=== PATIENT | male | born 1985 | race Caucasian/White ===

== ENCOUNTER 2016-12-17 12:52 | Emergency (ER) | payer OTHER ==
[2016-12-17] MEDS ORDERED: SODIUM CHLORIDE 0.9% 1,000 ML IV STA (13:26)
[2016-12-17] MEDS ORDERED: MORPHINE SULFATE 4 MG/ML SYRINGE IV STA (13:26)
--- NOTE | 2016-12-17 13:28 | XR ---
EXAMINATION TYPE: XR chest 2V DATE OF EXAM: 12/17/2016 COMPARISON: Prior chest x-ray 07/23/2014 HISTORY: Chest pain TECHNIQUE: Frontal and lateral views of the chest are obtained. FINDINGS: There is no focal air space opacity, pleural effusion, or pneumothorax seen. The cardiac silhouette size is within normal limits. The osseous structures are intact. IMPRESSION: No acute cardiopulmonary process.
--- NOTE | 2016-12-17 13:33 | ED ---
Chest Pain HPI - General Chief Complaint: Chest Pain Stated Complaint: [place] in shoulder and neck Time Seen by Provider: 12/17/16 13:15 Source: patient, RN notes reviewed, old records reviewed Mode of arrival: wheelchair Limitations: no limitations - History of Present Illness Initial Comments: 31-year-old male presents emergency Department chief complaint of pain in the right shoulder and chest area for the past week and half. Patient reports that the pain feels similar to previous pneumothorax. Patient ports that it is worse with taking a deep breath. He states that the pain occasionally radiate down the right arm. Patient denies any recent fever, chills, shortness of breath , chest pain, back pain, abdominal pain, nausea vomiting, numbness or tingling, dysuria or hematuria, constipation or diarrhea, headaches or visual changes, or any other current symptoms - Related Data Previous Rx's Medication Instructions Recorded Cyclobenzaprine [Flexeril] 10 mg PO TID #15 tab 12/17/16 HYDROcodone/APAP 10-325MG [[place] 1 tab PO Q6H PRN #12 tab 12/17/16 10-325] Allergies Allergy/AdvReac Type Severity Reaction Status Date / Time honey dew melon Allergy Unknown Uncoded 12/17/16 12:53 Review of Systems ROS Statement: Those systems with pertinent positive or pertinent negative responses have been documented in the HPI. ROS Other: All systems not noted in ROS Statement are negative. EKG Findings - EKG Comments: EKG Findings:: EKG shows normal sinus rhythm. Ventricular rate 60 bpm. GA interval 160 ms. QRS duration 94 ms. QT QTc is 388 ms. No evidence of ST elevation or T-wave inversion. No evidence of atrial or ventricular arrhythmias. Past Medical History Additional Past Medical History / Comment(s): Pneumothorax History of Any Multi-Drug Resistant Organisms: None Reported Past Surgical History: Adenoidectomy, Tonsillectomy Additional Past Surgical History / Comment(s): chest tube, PCL repair Past Psychological History: No Psychological Hx Reported Smoking Status: Never smoker Past Alcohol Use History: None Reported Past Drug Use History: None Reported General Exam - General Exam Comments Initial Comments: 31-year-old male. Patient is on appear to be in any acute distress. Limitations: no limitations General appearance: alert, in no apparent distress Head exam: Present: atraumatic, normocephalic, normal inspection Eye exam: Present: normal appearance, PERRL, EOMI. Absent: scleral icterus, conjunctival injection, periorbital swelling ENT exam: Present: normal exam, mucous membranes moist Neck exam: Present: normal inspection, tenderness (over right paraspinal cervical muscles. ). Absent: meningismus, lymphadenopathy Respiratory exam: Present: normal lung sounds bilaterally. Absent: respiratory distress, wheezes, rales, rhonchi, stridor Cardiovascular Exam: Present: regular rate, normal rhythm, normal heart sounds. Absent: systolic murmur, diastolic murmur, rubs, gallop, clicks GI/Abdominal exam: Present: soft, normal bowel sounds. Absent: distended, tenderness, guarding, rebound, rigid Extremities exam: Present: normal inspection, full ROM, normal capillary refill , other (right shoulder pain with abduction. Patient has full range of motion. ) . Absent: tenderness, pedal edema, joint swelling, calf tenderness Back exam: Present: normal inspection Neurological exam: Present: alert, oriented X3, CN II-XII intact Psychiatric exam: Present: normal affect, normal mood Skin exam: Present: warm, dry, intact, normal color. Absent: rash Course Vital Signs 12/17/16 12/17/16 12/17/16 12:53 13:58 15:03 Temperature 98.8 F 97.3 F L 97.1 F L Pulse Rate 84 61 61 Pulse Rate [ 62 W[employer] Room Supervisor ] Respiratory 17 18 18 Rate Blood Pressure 133/75 124/67 129/53 O2 Sat by Pulse 97 99 100 Oximetry 12/17/16 16:08 Temperature 98.7 F Pulse Rate 70 Pulse Rate [ W[employer] Room Supervisor ] Respiratory 18 Rate Blood Pressure 114/75 O2 Sat by Pulse 99 Oximetry Chest Pain MDM - MDM 31-year-old male presents emergency Department chief complaint of pain in the right shoulder and chest area for the past week and half. Patient reports that the pain feels similar to previous pneumothorax. Patient ports that it is worse with taking a deep breath. He states that the pain occasionally radiate down the right arm. Patient's lab work was reviewed and negative for any acute process. The right shoulder x-ray shows to correlate for shoulder impingement syndrome. Patient chest x-ray shows no evidence of pneumothorax. At this time appears to be more muscle skeletal issue. Patient will be discharged at this time with pain medication and muscle relaxers. Discussed following up with orthopedic. Also discussed returning for any worsening signs or symptoms that can occur. Disposition Clinical Impression: Impingement syndrome of right shoulder, Neck muscle spasm, Back pain Disposition: HOME SELF-CARE Condition: Good Instructions: Rotator Cuff Injury (ED), Costochondritis (ED) Additional Instructions: Patient advised to follow-up with primary care provider. With orthopedic and senior analysis specialist. Patient should not be purchased pain any physical activity until feeling better. Thickening applying heat and ice over the shoulder and neck. Return if there is any worsening signs or symptoms. Prescriptions: Cyclobenzaprine [Flexeril] 10 mg PO TID #15 tab HYDROcodone/APAP 10-325MG [[place] 10-325] 1 tab PO Q6H PRN #12 tab PRN Reason: Pain Referrals: None,Stated [Primary Care Provider] - 1-2 days Niurka Valdivia MD [STAFF PHYSICIAN] - 1-2 days Alon Stinson MD [STAFF PHYSICIAN] - 1-2 days Segun Maravilla DO [Doctor of Osteopathic Medicine] - 1-2 days Time of Disposition: 15:45
[2016-12-17 14:12] VITALS: RESP 18
[2016-12-17 14:20] LABS: Basophils % (A) 1 %; CHCM 34.1; Eosinophils # (A) 0.1 k/uL (0-0.7); Eosinophils % (A) 2 %; HCT 48.6 % (39.0-53.0); HDW 2.29; Luc # (Auto) 0.12; Luc % (Auto) 2; Lymphocytes # (A) 1.4 k/uL (1.0-4.8); Lymphocytes % (A) 19 %; MCH 32.9 pg (25.0-35.0); MCHC 34.9 g/dL (31.0-37.0); MCV 94.2 fL (80.0-100.0); Mean Platelet Volume 6.8; Monocytes # (A) 0.4 k/uL (0-1.0); Monocytes % (A) 5 %; Neutrophils # (A) 5.3 k/uL (1.3-7.7); Neutrophils % (A) 72 %; RBC 5.15 m/uL (4.30-5.90); RDW 12.8 % (11.5-15.5); WBC 7.4 k/uL (3.8-10.6); WBC (Perox) 7.65
[2016-12-17 14:26] LABS: ALT 32 U/L (21-72); AST 24 U/L (17-59); Alkaline Phosphatase 67 U/L (38-126); Anion Gap 14 mmol/L; Blood Urea Nitrogen 14 mg/dL (9-20); Calcium 10.2 mg/dL (8.4-10.2); Carbon Dioxide 23 mmol/L (22-30); Chloride 106 mmol/L (98-107); Glucose 93 mg/dL (74-99); Magnesium 1.9 mg/dL (1.6-2.3); Non-African American GFR(MDRD) >60 (>60 ml/min/1.73 sqM); Potassium 4.3 mmol/L (3.5-5.1); Sodium 143 mmol/L (137-145); Total Bilirubin 1.1 mg/dL (0.2-1.3); Total Protein 8.1 g/dL (6.3-8.2)
[2016-12-17 14:33] LABS: Creatine Kinase 102 U/L (55-170)
[2016-12-17 14:36] LABS: INR 1.1 (<1.1); Partial Thromboplastin Time 23.5 sec (22.0-30.0); Prothrombin Time 10.8 sec (9.0-12.0)
--- NOTE | 2016-12-17 14:44 | XR ---
Right shoulder HISTORY: Pain 3 views of the right shoulder No comparisons Bone mineralization, joint spaces and alignment are maintained. Distal acromial spur is suspected, di stal acromion is downturned. Right lung apex as visualized is normal. IMPRESSION: Correlate for shoulder impingement.
[2016-12-17 14:46] LABS: Creatine Kinase MB 0.6 ng/mL (0.0-2.4); Troponin I <0.012 ng/mL (0.000-0.034)
[2016-12-17] MEDS ORDERED: ORPHENADRINE 30 MG/ML 2 ML VIAL IVP STA (15:46)
[2016-12-17] MEDS ORDERED: KETOROLAC 30 MG/ML 1 ML VIAL IVP STA (15:46)
[2016-12-17 16:09] VITALS: BP 114/75; PULSE 70; TEMP 98.7
== END 2016-12-17 16:09 | disposition home or self-care (01) ==
LOC: EC 12:52
DX: M75.41 Impingement syndrome of right shoulder (principal); M62.838 Other muscle spasm; R07.9 Chest pain, unspecified; M54.9 Dorsalgia, unspecified; Z91.018 Allergy to other foods; Z87.09 Personal history of other diseases of the respiratory system; Z98.890 Other specified postprocedural states
CPT/HCPCS: 36415; 93005; 85379; 80053; 82550; 82553; 83735; 84484; 85025; 85610; 85730; 71020; 73030; 99285; 96374; 96375 ×2; 96361 ×2; J2270; J2360; J1885

== ENCOUNTER → 2017-01-09 | Outpatient (CLI) | payer OTHER ==
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
== END | disposition home or self-care (01) ==
LOC: RADMRIMAIN 19:03
PROVIDERS: ATTEND Internal Medicine
DX: M67.813 Other specified disorders of tendon, right shoulder (principal)

== ENCOUNTER → 2017-04-23 | Outpatient (CLI) | payer OTHER ==
--- NOTE | 2017-04-23 22:28 | MR ---
EXAMINATION TYPE: MR cervical spine wo con DATE OF EXAM ORDERED: 04/23/2017 10:16 PM HISTORY: M50.20 Cervical disc displacement. TECHNOLOGIST HISTORY AT TIME OF EXAM: Neck and rt shoulder pain/numbness x 2-3 mos COMPARISON: None. TECHNIQUE: Multiplanar, multiecho imaging of the cervical spine was obtained without contrast on a 1 .5 josiah magnet. FINDINGS: Prevertebral soft tissues are normal. There is some loss of the normal cervical lordosis. Vertebral body height and alignment are maintaine d. Atlantoaxial relationships are normal. There is a normal craniocervical junction. Cord signal is normal. From C2-3 through to C4-5, no definite abnormality is seen. At C5-C6, there is a central and right paracentral disc protrusion deforming the thecal sac with cord contact and displacement posteriorly. There is some narrowing of the right intervertebral foramen. T he facet and uncovertebral joints are unremarkable. At C6-C7, there is mild disc space loss. There is a right paracentral disc protrusion deforming the t hecal sac with cord contact and compression. This is impinging upon the right intervertebral foramen. The facet and uncovertebral joints are unremarkable. At C7-T1, no definite abnormality is seen. IMPRESSION: 1. RIGHT PARACENTRAL DISC PROTRUSIONS AT BOTH C5-6 AND C6-7 WITH CORD CONTACT AND MILD COMPRESSION AT C6-7. 2. RIGHT-SIDED INTERVERTEBRAL FORAMINAL NARROWING, C5-6 AND C6-7.
== END | disposition home or self-care (01) ==
LOC: RADMRIMAIN 21:52
PROVIDERS: ATTEND Orthopaedic Surgery
DX: M99.71 Connective tissue and disc stenosis of intervertebral foramina of cervical region (principal); M50.222 Other cervical disc displacement at C5-C6 level; G95.29 Other cord compression
CPT/HCPCS: 72141

== ENCOUNTER → 2018-03-09 | Outpatient (CLI) | payer OTHER ==
--- NOTE | 2018-03-10 02:10 | MR ---
EXAMINATION TYPE: MR knee RT wo con DATE OF EXAM: 03/09/2018 COMPARISON: None HISTORY: 32-year-old male Pain in right knee TECHNIQUE: Multiplanar, multisequence imaging of the right knee is performed without IV contrast. FINDINGS: The ACL appears intact. There is a thickened PCL graft reconstruction. The proximal fibers at the femoral attachment appear a ttenuated, refer to coronal PD FS image 19. The interference screw here projects minimally into the i ntercondylar notch region, refer to the same coronal image. The tibial attachment appears to be gross ly intact. MCL and LCL complex are intact. Both medial and lateral menisci appear intact. Tricompartmental articular cartilage volumes are maintained. Extensor mechanism is intact. Physiologic joint fluid. There is a thickened medial plica demonstrated , refer to sagittal image 11 and axial image 19. No Flaherty's cyst. Normal popliteal artery anatomy in muscle bulk. No suspicious bone marrow replacement. IMPRESSION: 1. Thickened PCL graft reconstruction but with an attenuated appearance at the femoral attachment cou ld represent partial tear, coronal image 19. On the same image, the femoral interference screw may pr oject minimally into the intercondylar notch region. 2. 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 Clinically correlate.
== END | disposition home or self-care (01) ==
LOC: RADMRIMAIN 12:13
PROVIDERS: ATTEND Internal Medicine
DX: M67.51 Plica syndrome, right knee (principal); Z98.890 Other specified postprocedural states

== ENCOUNTER 2019-09-07 00:50 | Emergency (ER) | payer OTHER ==
[2019-09-07 01:09] VITALS: BP 129/85; PULSE 79; RESP 18; TEMP 98
--- NOTE | 2019-09-07 01:41 | XR ---
EXAMINATION TYPE: XR chest 2V DATE OF EXAM: 09/07/2019 COMPARISON: 12/17/2016 HISTORY: Cough TECHNIQUE: FINDINGS: Heart and mediastinum are normal. Lungs are clear. Diaphragm is normal. Bony thorax appears normal. IMPRESSION: Normal chest. No change.
[2019-09-07] MEDS ORDERED: ALPRAZolam 0.5 MG TAB PO STA (01:45)
--- NOTE | 2019-09-07 01:45 | ED ---
General Adult HPI - General Chief complaint: Shortness of Breath Stated complaint: Neck pain Time Seen by Provider: 09/07/19 01:17 Source: patient Mode of arrival: ambulatory Limitations: physical limitation - History of Present Illness Initial comments: 33-year-old male presents today for chief complaint of right-sided neck pain x 2 days. Patient states that he isn't shortness of breath for the past 2 days he states he truly believes is due to anxiety. He states he had anxiety before all of this garay virus talk on the news and now it has been significantly worsen. Patient states that at times he feels it is a sharp pain in the right-sided neck he states this happened when he had a spontaneous pneumothorax denies been paranoid that this is ongoing again. Patient denies any chest pressure patient denies any consistent pain with deep inspiration. Patient denies any history of DVT or pulmonary embolism denies hemoptysis recent surgical procedures denies any calf pain or swelling. Patient denies fevers, Patient states he wants to also be sure he doesnt have a pneumonia. Patient denies any other complaints, upon arrival he appears well there are no signs of respiratory distress.Oxygenating well on RA and HR WNL. - Related Data Previous Rx's Medication Instructions Recorded Cyclobenzaprine [Flexeril] 10 mg PO TID #15 tab 12/17/16 HYDROcodone/APAP 10-325MG [[place] 1 tab PO Q6H PRN #12 tab 12/17/16 10-325] Allergies Allergy/AdvReac Type Severity Reaction Status Date / Time honey dew melon Allergy Unknown Uncoded 09/07/19 01:09 Review of Systems ROS Statement: Those systems with pertinent positive or pertinent negative responses have been documented in the HPI. ROS Other: All systems not noted in ROS Statement are negative. Past Medical History Additional Past Medical History / Comment(s): Pneumothorax History of Any Multi-Drug Resistant Organisms: None Reported Past Surgical History: Adenoidectomy, Tonsillectomy Additional Past Surgical History / Comment(s): chest tube, PCL repair Past Psychological History: No Psychological Hx Reported, Panic Disorder Smoking Status: Never smoker Past Alcohol Use History: None Reported Past Drug Use History: None Reported General Exam - General Exam Comments Initial Comments: General: The patient is awake and alert, in no distress, and does not appear acutely ill. Eye: +3 mm pupils are equal, round and reactive to light, extra-ocular movements are intact. No nystagmus. There is normal conjunctiva bilaterally. No signs of icterus. Ears, nose, mouth and throat: There are moist mucous membranes and no oral lesions. Neck: The neck is supple, there is no tenderness or JVD. Cardiovascular: There is a regular rate and rhythm. No murmur, rub or gallop is appreciated. Respiratory: Lungs are clear to auscultation, respirations are non-labored, breath sounds are equal. No wheezes, stridor, rales, or rhonchi. Musculoskeletal: Normal ROM, no tenderness. Strength 5/5. Sensation intact. Radial pulses equal bilaterally 2+. Neurological: A&O x 3. CN II-XII intact, There are no obvious motor or sensory deficits. Coordination appears grossly intact. Speech is normal. Skin: Skin is warm and dry and no rashes or lesions are noted. NO LE edema, no calf pain or swelling. Psychiatric: Cooperative, appropriate mood & affect, normal judgment. Limitations: physical limitation Course Vital Signs 09/07/19 01:04 Temperature 98 F Pulse Rate 79 Respiratory 18 Rate Blood Pressure 129/85 O2 Sat by Pulse 97 Oximetry Disposition Clinical Impression: Anxiety, Shortness of breath Disposition: HOME SELF-CARE Condition: Good Instructions (If sedation given, give patient instructions): Generalized Anxiety Disorder (ED), Dyspnea (ED) Additional Instructions: Please use medication as discussed. Please follow-up with family doctor in the next 2 days. Please return to emergency room if the symptoms increase or worsen or for any other concerns. Is patient prescribed a controlled substance at d/c from ED?: No Referrals: Eliezer Brown MD [Primary Care Provider] - 1-2 days Time of Disposition: 01:58
== END 2019-09-07 02:13 | disposition home or self-care (01) ==
LOC: EC 00:50
DX: F41.9 Anxiety disorder, unspecified (principal); R06.02 Shortness of breath; M54.2 Cervicalgia; Z91.018 Allergy to other foods
CPT/HCPCS: 71046; 99285

== ENCOUNTER 2020-03-31 00:37 | Emergency (ER) | payer OTHER ==
[2020-03-31 00:45] VITALS: RESP 18
[2020-03-31] MEDS ORDERED: HYDROmorphone 1 MG/ML 1 ML SYRINGE IM STA (01:04)
[2020-03-31] MEDS ORDERED: LIDOCAINE 1% INJ 10MG/ML (20 ML MDV) SQ ONE (01:04)
[2020-03-31] MEDS ORDERED: SULFAMETH-TMP DS STARTER PACK 2 TAB BTL PO STA (01:04)
[2020-03-31] MEDS ORDERED: ACET/COD 300 MG/30 MG STARTER PACK 6 TAB BTL PO STA (01:05)
--- NOTE | 2020-03-31 01:24 | ED ---
General Adult HPI - General Chief complaint: Skin/Abscess/Foreign Body Stated complaint: Cyst on buttock Time Seen by Provider: 03/31/20 00:47 Source: patient Mode of arrival: ambulatory Limitations: no limitations - History of Present Illness Initial comments: 34-year-old male patient presents to the emergency department today for evaluation of pain, swelling, redness to the left buttock. Patient believes he has a "cyst". Patient states this started about 3 days ago and has been worsening. Denies fever or chills. Denies any drainage from the area. States that he has had cutaneous staph infections in the past but no abscesses. Denies any IV drug use. Patient denies any recent rash, cough, shortness of breath, chest pain, abdominal pain, nausea, vomiting, diarrhea, constipation, back pain, numbness, tingling, dizziness, weakness, hematuria, dysuria, urinary urgency, urinary frequency, headache, visual changes, or any other complaints. - Related Data Previous Rx's Medication Instructions Recorded Cyclobenzaprine [Flexeril] 10 mg PO TID #15 tab 12/17/16 HYDROcodone/APAP 10-325MG [[place] 1 tab PO Q6H PRN #12 tab 12/17/16 10-325] ALPRAZolam [Xanax] 0.25 mg PO BID PRN 3 Days #6 tab 09/07/19 Ibuprofen [Motrin] 600 mg PO Q8HR PRN #30 tab 03/31/20 Sulfamethoxazole/Trimethoprim 1 each PO BID #20 tablet 03/31/20 [Bactrim DS 800-160 mg] Allergies Allergy/AdvReac Type Severity Reaction Status Date / Time honey dew melon Allergy Unknown Uncoded 09/07/19 01:09 Review of Systems ROS Statement: Those systems with pertinent positive or pertinent negative responses have been documented in the HPI. ROS Other: All systems not noted in ROS Statement are negative. Past Medical History Additional Past Medical History / Comment(s): Pneumothorax History of Any Multi-Drug Resistant Organisms: None Reported Past Surgical History: Adenoidectomy, Tonsillectomy Additional Past Surgical History / Comment(s): chest tube, PCL repair Past Psychological History: Anxiety, Panic Disorder Smoking Status: Never smoker Past Alcohol Use History: None Reported Past Drug Use History: None Reported General Exam Limitations: no limitations General appearance: alert, in no apparent distress, other (This is a well- developed, well-nourished adult male patient in no acute distress. Vital signs upon presentation are temperature 97.9F, pulse 74, respirations 18, blood pressure 134/88, pulse ox 94% on room air.) Respiratory exam: Present: normal lung sounds bilaterally. Absent: respiratory distress, wheezes, rales, rhonchi, stridor Cardiovascular Exam: Present: regular rate, normal rhythm, normal heart sounds. Absent: systolic murmur, diastolic murmur, rubs, gallop, clicks GI/Abdominal exam: Present: soft, normal bowel sounds. Absent: distended, tenderness, guarding, rebound, rigid Neurological exam: Present: alert, oriented X3, CN II-XII intact Psychiatric exam: Present: normal affect, normal mood Skin exam: Present: warm, dry, intact, normal color, other (3cm abscess noted to the left upper buttock near the gluteal cleft. There is overlying, but no surrounding erythema. No drainage noted. Some fluctuance.). Absent: rash Course Vital Signs 03/31/20 03/31/20 00:41 02:06 Temperature 97.9 F 98 F Pulse Rate 74 87 Respiratory 18 18 Rate Blood Pressure 134/88 144/74 O2 Sat by Pulse 94 L 98 Oximetry Procedures - Incision & Drainage Consent Obtained: written consent Indication: abscess Site: buttock (Left) Size (cm): 3 Anesthetic Used: lidocaine 1% Amount (mLs): 5 I&D Cleaning Method: Betadine Scalpel Used: #11 I&D Drainage Obtained: Pus, Blood Culture Obtained?: Yes Patient Tolerated Procedure: well, no complications Medical Decision Making - Medical Decision Making 34 year-old male patient presented to the emergency department today for evaluation of abscess to the left buttock. Physical examination did reveal 3 cm abscess with overlying erythema, no surrounding erythema. There was a small are a of fluctuance. We did perform incision and drainage and obtained culture. Patient be started on Bactrim. He is instructed to do warm sitz baths or warm compresses to the area 3-4 times daily. Is instructed take Avapro for pain control. Instructed to follow-up with his primary care physician for recheck of the area in 1-2 days. Return parameters were discussed in detail. He verbalizes understanding and agrees with this plan. Disposition Clinical Impression: Left buttock abscess Disposition: HOME SELF-CARE Condition: Good Instructions (If sedation given, give patient instructions): Abscess Incision and Drainage (ED), Abscess (ED) Additional Instructions: Apply warm compresses to the area for 5 times a day. Complete antibiotic prescription and full. Follow-up through primary care physician for recheck in 1-2 days. Return to the emergency department immediately for any new, worsening, or concerning symptoms. Prescriptions: Sulfamethoxazole/Trimethoprim [Bactrim DS 800-160 mg] 1 each PO BID #20 tablet Ibuprofen [Motrin] 600 mg PO Q8HR PRN #30 tab PRN Reason: Pain Is patient prescribed a controlled substance at d/c from ED?: No Referrals: Eliezer Brown MD [Primary Care Provider] - 1-2 days Time of Disposition: 02:00
[2020-03-31 02:07] VITALS: BP 144/74; PULSE 87; TEMP 98
== END 2020-03-31 02:07 | disposition home or self-care (01) ==
LOC: EC 00:37
DX: L02.31 Cutaneous abscess of buttock (principal); Z91.018 Allergy to other foods
CPT/HCPCS: 87070; 87205; 99283; 96372; 10060; J2001; J1170

== ENCOUNTER → 2021-07-03 | Outpatient (CLI) | payer OTHER ==
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
== END | disposition home or self-care (01) ==
LOC: RADXRMAIN 14:39
PROVIDERS: ATTEND Physician Assistant
DX: S20.20XA Contusion of thorax, unspecified, initial encounter (principal); X58.XXXA Exposure to other specified factors, initial encounter
CPT/HCPCS: 71046

== ENCOUNTER 2021-12-31 13:56 | Emergency (ER) | payer OTHER ==
[2021-12-31 15:40] VITALS: BP 130/74; PULSE 58; RESP 16; TEMP 98.1
--- NOTE | 2021-12-31 17:21 | ED ---
Skin/Abscess/FB HPI - General Chief complaint: Skin/Abscess/Foreign Body Stated complaint: Bug Bites Source: patient, family, RN notes reviewed Mode of arrival: ambulatory Limitations: no limitations - History of Present Illness Initial comments: Patient is a 36-year-old malePresents to the emergency room with his with complaints of a rash. He has a rash located to the lower inner aspect of his left leg, left flank along with left upper buttocks and slightly over to his right buttocks. He states that the lesion to his left lower leg is the first lesion that he obtained. On further discussion and investigation he admits that prior to the event happening he was walking through all grafts while playing and outdoor sport. He states that the lesions to his upper buttocks got worse and indurated after applying a and D ointment. 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 He denies any fevers, chills, shortness of breath, body aches or exposure to known irritants. He denies any asthma history. Overall he is healthy and not taking any medications on a regular basis. - Related Data Previous Rx's Medication Instructions Recorded Cyclobenzaprine [Flexeril] 10 mg PO TID #15 tab 12/17/16 HYDROcodone/APAP 10-325MG [[facility] 1 tab PO Q6H PRN #12 tab 12/17/16 10-325] ALPRAZolam [Xanax] 0.25 mg PO BID PRN 3 Days #6 tab 09/07/19 Ibuprofen [Motrin] 600 mg PO Q8HR PRN #30 tab 03/31/20 Sulfamethoxazole/Trimethoprim 1 each PO BID #20 tablet 03/31/20 [Bactrim DS 800-160 mg] Nystatin/Triamcin Cream [Mycolog 1 applic TOPICAL BID #120 gm 12/31/21 100,000-0.1 Unit/gm-% Cream] predniSONE [Deltasone] 20 mg PO DIRECTED #16 tab 12/31/21 Allergies Allergy/AdvReac Type Severity Reaction Status Date / Time honey dew melon Allergy Unknown Uncoded 12/31/21 15:38 Review of Systems ROS Statement: Those systems with pertinent positive or pertinent negative responses have been documented in the HPI. ROS Other: All systems not noted in ROS Statement are negative. Past Medical History Additional Past Medical History / Comment(s): Pneumothorax History of Any Multi-Drug Resistant Organisms: None Reported Past Surgical History: Adenoidectomy, Tonsillectomy Additional Past Surgical History / Comment(s): chest tube, PCL repair Past Psychological History: Anxiety, Panic Disorder Smoking Status: Never smoker Past Alcohol Use History: None Reported Past Drug Use History: None Reported General Exam Limitations: no limitations General appearance: alert, in no apparent distress Head exam: Present: atraumatic, normocephalic, normal inspection Eye exam: Present: normal appearance, PERRL, EOMI. Absent: scleral icterus, conjunctival injection, periorbital swelling ENT exam: Present: mucous membranes moist Neck exam: Present: normal inspection Respiratory exam: Absent: respiratory distress, accessory muscle use GI/Abdominal exam: Present: soft. Absent: distended, tenderness Neurological exam: Present: alert (Diffuse erythemic rash to left lower medial leg. Healing consistent with contact dermatitis. Rash to left upper buttocks large indurated without central clearing at this time. Also with scattered macular papular rash with erythema and to left flank mild. No exudative drainage from any rash.), oriented X3, CN II-XII intact Psychiatric exam: Present: normal affect, normal mood Skin exam: Present: rash, urticaria Course Vital Signs 12/31/21 15:38 Temperature 98.1 F Pulse Rate 58 L Respiratory 16 Rate Blood Pressure 130/74 O2 Sat by Pulse 99 Oximetry Medical Decision Making - Medical Decision Making Rash complexity of both contact dermatitis along with fungal rash noted. No indication for diagnostic imaging or laboratory studies at this time. No evidence of diffuse cellulitis. No indication for antibiotic therapy at this time. Discussed giving IM steroid injection to start anti-inflammatory process however he is declining and wishes to proceed with oral steroids along with topical agents. Will treat with burst tapered steroid along with combination antifungal steroid topical agent to current rash lesions. Education given regarding avoidance of skin irritants soaps and lotions with fragments her dyes. Symptoms regarding worsening of rash discussed and advised to return to urgent care if recurs. No evidence of systemic inflammatory response. Case discussed with Dr. Yuan. Disposition Clinical Impression: Contact dermatitis, Tinea corporis Disposition: HOME SELF-CARE Condition: Fair Instructions (If sedation given, give patient instructions): Contact Dermatitis (ED), Tinea Corporis (ED) Additional Instructions: Please complete steroid course as prescribed. Continue to apply steroid antifungal cream until rash resolved. Cleanse rashes with mild soap and warm water do not use abrasive chemicals or soaps with fragrances or dyes. Keep wounds covered if clothing irritation or potential for contamination. Please follow-up with your primary care provider. Please return to the Emergency Department if symptoms worsen or any other concerns. Prescriptions: predniSONE [Deltasone] 20 mg PO DIRECTED #16 tab Nystatin/Triamcin Cream [Mycolog 100,000-0.1 Unit/gm-% Cream] 1 applic TOPICAL BID #120 gm Is patient prescribed a controlled substance at d/c from ED?: No Referrals: Eliezer Brown MD [Primary Care Provider] - 1-2 days Time of Disposition: 17:22 Decision Time: 17:28
== END 2021-12-31 17:40 | disposition home or self-care (01) ==
LOC: EC 13:56
DX: L25.9 Unspecified contact dermatitis, unspecified cause (principal); B35.4 Tinea corporis; Z91.018 Allergy to other foods
CPT/HCPCS: 99282